=== PATIENT | male | born 1985 | race Hispanic/Latino ===

== ENCOUNTER 2023-02-28 08:24 | Emergency (ER) | payer SELFPAY ==
[2023-02-28 08:46] VITALS: BP 124/78; PULSE 50; RESP 16; TEMP 36.3; O2SAT 100
--- NOTE | 2023-02-28 08:46 | ED.GENADULT ---
HPI - General Adult General Chief complaint: Unspecified Stated complaint: Anus pain Time Seen by Provider: 02/28/23 08:48 Source: patient Mode of arrival: ambulatory Limitations: no limitations History of Present Illness HPI narrative: 37 y/o male presented for c/o rectal pain for 3 days with bowel movement. States it feels like rectum is swollen or injured, and reports throbbing and pressure with bowel movements. Endorses possible small amount of blood in stool. Has been using previously prescribed cream for itching, and 'cream for babies.' Denies abdominal pain, decreased appetite, n/v/d, or constipation. Has 2-3 BMs per day without change, stool is not hard or narrow. States he has had similar symptoms in the past, but has not been dx with hemorrhoids. 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 Related Data Allergies Allergy/AdvReac Type Severity Reaction Status Date / Time No Known Allergies Allergy Verified 02/28/23 09:09 Review of Systems Review of Systems: CONSTITUTIONAL: Denies body aches, fever, chills, or sweats. EYES: Denies visual changes, redness, or discharge. ENT: Denies rhinorrhea, congestion, sore throat, or otalgia. CARDIOVASCULAR: Denies chest pain, palpitations, or edema. RESPIRATORY: Denies cough or dyspnea. GASTROINTESTINAL: Denies abdominal pain, nausea, vomiting, or diarrhea. Reports rectal pain. GENITOURINARY: Denies dysuria or hematuria. SKIN: Denies rash, itching, or wounds. MUSCULOSKELETAL: Denies back pain, joint pain, or myalgia. NEUROLOGIC: Denies headache, numbness, tingling, or weakness. All systems reviewed & are unremarkable except as noted in HPI and below PMFSH Past Medical History Medical History (Updated 02/28/23 @ 09:25 by Juanis Quarles APRN) No pertinent past medical history Comments At time of signature, I have reviewed and agree with nursing past medical, surgical, social and family history unless otherwise noted. Please see nursing chart for further information. There is no relevant family history pertinent to the presenting complaint Exam Narrative: GENERAL: Well-appearing, well-nourished, and in no acute distress. HEAD: Normocephalic, atraumatic. EYES: EOMI. No redness or drainage. Conjunctivae normal. ENT: Mucous membranes pink and moist. No rhinorrhea. TMs normal bilaterally. Throat normal. Uvula midline. NECK: Normal AROM. Supple. No lymphadenopathy. CHEST: No respiratory distress. Clear to auscultation. HEART: Regular rate and rhythm. No murmur appreciated. Normal peripheral pulses. ABDOMEN: Soft, nontender, nondistended, normal active bowel sounds. External rectal exam is normal without hemorrhoids; tender and firm surrounding anus. No erythema or induration or fluctuance. MUSCULOSKELETAL: No bony tenderness. EXTREMITIES: Normal range of motion. No edema. SKIN: Warm, dry, no rash. Capillary refill normal. Normal skin turgor. NEURO: No focal deficits. Alert and oriented x3. Gait steady. PSYCH: Normal affect. Course Course Emergency Course: Patient is aware of diagnosis, understands and agrees to treatment plan. Anticipatory guidance given. Patient agrees to follow-up as directed and is aware of reasons to seek care at the emergency department. Portions of this record may have been created with voice recognition software Level of Care: Express Care Visit Vital Signs Vital signs: Vital Signs Temperature 97.4 F L 02/28/23 08:46 Pulse Rate 50 L 02/28/23 08:46 Respiratory Rate 16 02/28/23 08:46 Blood Pressure 124/78 02/28/23 08:46 Pulse Oximetry 100 02/28/23 08:46 Temperature 97.4 F L 02/28/23 08:46 Pulse Rate 50 L 02/28/23 08:46 Respiratory Rate 16 02/28/23 08:46 Blood Pressure 124/78 02/28/23 08:46 Pulse Oximetry 100 02/28/23 08:46 Medical Decision Making [facility] Narrative Medical decision making narrative: Discussed physical exam findings. Advised supportive measures and si
== END 2023-02-28 09:17 | disposition home or self-care (01) ==
PROVIDERS: Emergency Provider Nurse Practitioner Family
DX: K62.89 Other specified diseases of anus and rectum (principal)
CPT/HCPCS: 99213; G0463

== ENCOUNTER 2023-04-22 09:33 | Emergency (ER) | payer SELFPAY ==
[2023-04-22 10:08] VITALS: BP 117/70; PULSE 77; RESP 16; TEMP 36.5; O2SAT 100
--- NOTE | 2023-04-22 11:18 | ED.URI ---
HPI - URI/Sore Throat General Chief Complaint: Upper Respiratory Infection Stated Complaint: HEADACHE/SORE THROAT Time Seen by Provider: 04/22/23 10:52 Source: patient, RN notes reviewed and supervisor film processing Mode of arrival: ambulatory Limitations: no limitations History of Present Illness HPI Narrative: Patient presents today with a 2 day history of headache, subjective fever, vomiting, swelling to the left side of the neck. Patient currently rates his pain 8/10 and has been taking Tylenol and Advil with mild relief. Son presents with him with similar symptoms. Related Data Allergies Allergy/AdvReac Type Severity Reaction Status Date / Time No Known Allergies Allergy Verified 02/28/23 09:09 Review of Systems Review of Systems: CONSTITUTIONAL: Denies body aches, chills, or sweats.+ subjective fever EYES: Denies visual changes, redness, or discharge. ENT: Denies rhinorrhea, congestion, sore throat, or otalgia. CARDIOVASCULAR: Denies chest pain, palpitations, or edema. RESPIRATORY: Denies cough or dyspnea. GASTROINTESTINAL: Denies abdominal pain, nausea, or diarrhea.+ vomiting GENITOURINARY: Denies dysuria or hematuria. SKIN: Denies rash, itching, or wounds. MUSCULOSKELETAL: Denies back pain, joint pain, or myalgia. NEUROLOGIC: Denies headache, numbness, tingling, or weakness.+ headache PSYCH: Denies depression or anxiety. PENDING SALE TO [facility] Past Medical History Medical History No pertinent past medical history Comments At time of signature, I have reviewed and agree with nursing past medical, surgical, social and family history unless otherwise noted. Please see nursing chart for further information. There is no relevant family history pertinent to the presenting complaint Exam Narrative: GENERAL: Mildly ill-appearing, well-nourished, and in no acute distress. HEAD: Normocephalic, atraumatic. EYES: EOMI. No redness or drainage. Conjunctivae normal. ENT: Mucous membranes pink and moist. Nares clear. No rhinorrhea. TMs normal bilaterally. Throat erythematous and edematous. Tonsils 3+ with white exudate. Uvula midline. NECK: Normal AROM. Supple. Left anterior cervical chain and tonsillar lymphadenopathy and tenderness. CHEST: No respiratory distress. Clear to auscultation. HEART: Regular rate and rhythm. No murmur appreciated. Normal peripheral pulses. EXTREMITIES: Normal range of motion. No edema. SKIN: Warm, dry, no rash. Capillary refill normal. Normal skin turgor. NEURO: No focal deficits. Alert and oriented x3. Gait steady. PSYCH: Normal affect. No signs of depression or anxiety. Course Course Level of Care: Express Care Visit Vital Signs Vital signs: Vital Signs Temperature 97.7 F 04/22/23 10:08 Pulse Rate 77 04/22/23 10:08 Respiratory Rate 16 04/22/23 10:08 Blood Pressure 117/70 04/22/23 10:08 Pulse Oximetry 100 04/22/23 10:08 Temperature 97.7 F 04/22/23 10:08 Pulse Rate 77 04/22/23 10:08 Respiratory Rate 16 04/22/23 10:08 Blood Pressure 117/70 04/22/23 10:08 Pulse Oximetry 100 04/22/23 10:08 At time of signature, I have reviewed and agree with nursing past medical, surgical, social and family history unless otherwise noted. Please see nursing chart for further information. There is no relevant family history pertinent to the presenting complaint MDM - URI/Sore Throat MDM Narrative Medical decision making narrative: All test negative. Symptoms likely viral in etiology. Strep culture pending. will treat with Zofran and course of prednisone. Anticipatory guidance given. Differential Diagnosis Differential diagnosis: Likely upper respiratory infection, viral infection, influenza, pharyngitis and other (Strep throat, COVID-19) Lab Data Attestation: I reviewed the patient's lab results. Lab results narrative: COVID-19 negative Labs: Influenza A Screen Negative
== END 2023-04-22 11:28 | disposition home or self-care (01) ==
PROVIDERS: Emergency Provider Nurse Practitioner; PCP Registered Nurse
DX: B34.9 Viral infection, unspecified (principal); Z20.822 Contact with and (suspected) exposure to COVID-19
CPT/HCPCS: 87081; 87147; 87426; 87804; 87880; 99213; C9803; G0463

== ENCOUNTER 2023-06-06 08:18 | Emergency (ER) | payer SELFPAY ==
[2023-06-06 08:26] VITALS: BP 108/71; PULSE 56; RESP 16; TEMP 36.1; O2SAT 100
--- NOTE | 2023-06-06 08:33 | ED.SKABFB ---
HPI - Skin/Abscess/Foreign Bdy General Chief complaint: Skin/Abscess/Foreign Body Stated complaint: Rash Time Seen by Provider: 06/06/23 08:33 Source: patient, RN notes reviewed and old records reviewed Mode of arrival: ambulatory Limitations: language barrier and other (interpretor service) History of Present Illness HPI narrative: 37 year old male accompanied by family member presents to [facility] care with complaints of left sided back pain for one week duration and then he noted rash to his left sided back around to left upper abdomen which started 2 days ago.Patient states that he initially though it was some muscle ache so he had family member cup his back with cachil dehe noted in area of rash on his back. Patient reports that he has applied some alcohol to the rash.Patient reports that area feels swollen and pérez, no drainage or crusting of lesions noted.Patient reports that he did have chicken pox as a child. MD complaint: rash and other (back pain) Onset (ago): week(s) (1 week pain rash started 2 days ago) Location: back (left back) Severity: moderate Treatments prior to arrival: other (alcohol) Related Data Home Medications Medication Instructions Recorded Confirmed atorvastatin 10 mg tablet 10 mg PO DAILY 06/06/23 06/06/23 Allergies Allergy/AdvReac Type Severity Reaction Status Date / Time No Known Allergies Allergy Verified 06/06/23 08:27 Review of Systems Review of Systems: CONSTITUTIONAL: Denies fever, chills, or sweats. CARDIOVASCULAR: Denies chest pain, palpitations, or edema. RESPIRATORY: Denies cough or dyspnea. SKIN: Reports red blister type of rash to left back and going around to left upper abdomen MUSCULOSKELETAL: Denies joint pain or myalgia. NEUROLOGIC: Denies headache, numbness, or weakness. All systems reviewed & are unremarkable except as noted in HPI and below [facility] Past Medical History Medical History (Updated 06/07/23 @ 07:54 by Tricia Delacruz NP) Pre-diabetes Serum cholesterol elevated Social History Social History (Updated 06/07/23 @ 07:52 by Tricia Delacruz NP) Smoking status: Never smoker Alcohol intake: current Alcohol use details: social Substance use type: does not use Living arrangements: with family Gender identity (if verbalized by the patient): Male Comments At time of signature, agree with nursing past medical, surgical, social and family history. There is no relevant family history pertinent to the presenting complaint Exam Narrative: GENERAL: Well-appearing, well-nourished, and in no acute distress. HEAD: Normocephalic, atraumatic. EYES: PERRLA, conjunctivae clear, and EOMI. ENT: Mucous membranes moist. Oropharynx without edema, erythema or lesions. NECK: Supple. No lymphadenopathy CHEST: Clear to auscultation. No respiratory distress.SAO2 100% on room air HEART: Regular rate and rhythm. SKIN: Warm, dry.? Patches of red blistery rash on left side of back and around to left upper abdomen with burning discomfort, no drainage or crusting of lesions NEURO:? Alert and oriented x3. PSYCH: Normal mood and affect Course Course Emergency Course: Patient is aware of diagnosis, understands and agrees to treatment plan.? Anticipatory guidance given.? Patient agrees to follow-up as directed and is aware of reasons to seek care at the emergency department. Portions of this record may have been created with voice recognition software Level of Care: Express Care Visit Vital Signs Vital signs: Vital Signs Temperature 36.1 C L 06/06/23 08:26 Pulse Rate 56 L 06/06/23 08:26 Respiratory Rate 16 06/06/23 08:26 Blood Pressure 108/71 06/06/23 08:26 Pulse Oximetry 100 06/06/23 08:26 Temperature 36.1 C L 06/06/23 08:26 Pulse Rate 56 L 06/06/23 08:26 Respiratory Rate 16 06/06/23 08:26 Blood Pressure 108/71 06/06/23 08:26 Pulse Oximetry 100 06/06/23 08:26 Reviewed MDM - Skin/Abscess/Foreign Bd
== END 2023-06-06 08:58 | disposition home or self-care (01) ==
PROVIDERS: Emergency Provider Registered Nurse; PCP Registered Nurse
DX: B02.9 Zoster without complications (principal)
CPT/HCPCS: 99213; G0463

== ENCOUNTER 2024-08-25 08:57 | Emergency (ER) | payer SELFPAY ==
--- NOTE | ~2024-08-25 | XR_ITS ---
EXAMINATION: XR chest 2V DATE: 08/25/2024 09:33 INDICATION: Cough. TECHNIQUE: Frontal and lateral views of the chest were obtained. COMPARISON: None. FINDINGS: There are mild airspace opacities in the lower lung zones. No pleural effusion or pneumotho rax. The heart size is normal. IMPRESSION: 1. Mild airspace opacities in the lower lung zones, consistent with atelectasis versus pneumonia. Reviewed, dictated and finalized at location A. ETOLOGY INSTRUCTOR
[2024-08-25 09:26] VITALS: BP 101/67; PULSE 89; RESP 16; TEMP 36.9; O2SAT 98
--- NOTE | 2024-08-25 09:54 | ED.URI ---
HPI - URI/Sore Throat General Chief Complaint: Upper Respiratory Infection Stated Complaint: FEVER/COUGH/CONGESTION Time Seen by Provider: 08/25/24 09:25 Source: patient, RN notes reviewed, old records reviewed and network pricing consultant (Icelandic) Mode of arrival: ambulatory Limitations: no limitations History of Present Illness HPI Narrative: 39-year-old male presents to the [facility] with 1 week of cough and fevers. Also reports headache, low back pain. Has been taken [id number] products with minimal relief. Patient denies any past medical history. Use a mold capper helper for entire HPI and exam. Related Data Home Medications ?Medication ?Instructions ?Recorded ?Confirmed ?Last Taken ?Type atorvastatin 10 mg tablet 10 mg PO DAILY 06/06/23 06/06/23 Unknown History Allergies Allergy/AdvReac Type Severity Reaction Status Date / Time No Known Allergies Allergy Verified 06/06/23 08:27 Review of Systems Review of Systems: All systems reviewed & are unremarkable except as noted in HPI and below Constitutional: Constitutional: Reports as per HPI, Reports body ache(s), Reports fever(s) and Reports headache(s) ENT: Reports system reviewed and no additional complaints, except as documented Cardiovascular: Cardiovascular: Reports no additional cardiovascular complaints, Denies chest pain and Denies dyspnea Respiratory: Respiratory: Reports as per HPI, Denies chest congestion, Reports cough and Denies dyspnea Musculoskeletal: Musculoskeletal: Reports no additional musculoskeletal complaints Integumentary/Breasts: Skin/Breast: Reports system reviewed and no additional complaints, except as docu PMFSH Past Medical History Medical History Pre-diabetes Serum cholesterol elevated Social History Social History Smoking status: Never smoker Alcohol intake: current Alcohol use details: social Substance use type: does not use Living arrangements: with family Gender identity (if verbalized by the patient): Male Comments At the time of my signature, I reviewed and agree with the nursing past medical, surgical, social, and family history. There is no relevant family history pertinent to the patient complaint. Exam Const: General: cooperative, healthy appearing, comfortable, no acute distress, well developed, alert and well nourished Nutritional Appearance: well nourished Orientation/consciousness: patient oriented x3 Limitations: no limitations HENMT: Head: normal to inspection Ears: hearing grossly normal bilaterally, external ears normal, TM's normal bilaterally, EAC's normal, mastoids normal and no periauricular adenopathy Mouth: Yes Normal oral and palatal mucosa present, Yes lip normal, Yes tongue normal and Yes moist mucous membranes Eyes: General: appearance normal, both eyes and all related structures Alignment and Position: alignment normal Neck: Neck: normal visual inspection, full ROM, no lymphadenopathy and no meningeal signs Chest: Chest palpation & inspection: normal inspection of the chest Resp: Effort & Inspection: normal respiratory effort and able to speak in complete sentences Auscultation: clear to auscultation bilaterally, no crackles, no rales, no rhonchi, no wheezes and diminished lung sounds on the left in the lower lung marquez Cardio: Rate: regular rate Skin: General skin exam: normal color and no rashes or lesions noted Neuro: General: patient oriented x3, gait normal, moves all extremities and no meningeal signs Cognition (Neuro): normal cognition Speech: normal speech Gait exam (Neuro): Normal gait present Extrem: General: normal to inspection, full ROM, capillary refill normal and normal gait Psych: Appearance: grossly normal and well kempt Mental Status: mental status grossly normal Speech and movement: Normal speech and movement present and Clear speech present Affect: normal affect Attitude: cooperative Course Course Level of Care: Express Care Visit Vital Signs Vital signs: Vital Signs Temperature 98.5 F 08/25/24 09:26 Pulse Rate 89 08/25/24 09:26 Respiratory Rate 16 08/25/24 09:26 Blood Pressure 101/67 08/25/24 09:26 Pulse Oximetry 98 08/25/24 09:26 Temperature 98.5 F 08/25/24 09:26 Pulse Rate 89 08/25/24 09:26 Respiratory Rate 16 08/25/24 09:26 Blood Pressure 101/67 08/25/24 09:26 Pulse Oximetry 98 08/25/24 09:26 Reviewed MDM - URI/Sore Throat MDM Narrative Medical decision making narrative: Patient sitting comfortably in exam room. Nontoxic, vitals stable. Patient in no acute distress. Patient presents with cough and fevers x1 week. Chest x-ray shows mild opaque is sees in the lower lung zones consistent with atelectasis versus pneumonia, will treat for pneumonia, encourage patient to take deep breaths. Patient appropriate for outpatient treatment with close follow-up, strict signs and symptoms to go the emergency room which were printed in [place]ic Discharge instructions reviewed with patient, as well as provided in writing per nursing staff. The instructions also include specific and strict return/GO TO THE ER as well as f/u information. All questions have been answered, and the patient deny any further questions with discharge and discharge plan. Some parts of this dictation were generated by voice recognition software and may contain typographical and/or grammatical inaccuracies. Differential Diagnosis Differential diagnosis: Likely upper respiratory infection, viral infection, bronchitis and other (Pneumonia) Imaging Data Radiologist's impression: EXAMINATION: XR chest 2V DATE: 08/25/2024 09:33 INDICATION: Cough. TECHNIQUE: Frontal and lateral views of the chest were obtained. COMPARISON: None. FINDINGS: There are mild airspace opacities in the lower lung zones. No pleural effusion or pneumothorax. The heart size is normal. IMPRESSION: 1. Mild airspace opacities in the lower lung zones, consistent with atelectasis versus pneumonia. Critical Care Time Critical Care Time Critical Care Time: No Discharge Plan Discharge Clinical Impression: Pneumonia Qualifiers: Pneumonia type: due to unspecified organism Patient Disposition: Home, Self-Care Condition: Stable Instructions: Antibiotic Form, Pneumonia (ED) Additional Instructions: Tu radiograf?a mostr? neumon?a. Es importante que respires profundamente 10 veces cada hora mientras est?s despierto. Hatch los antibi?ticos seg?n lo prescrito hasta que se acaben. Seguimiento con snyder proveedor de atenci?n primaria Es muy importante tratar liss s?ntomas. Janeth pratik agua, Gatorade, Pedialyte, paletas heladas o gelatina. -Alterne Tylenol y Motrin seg?n las instrucciones del paquete para la fiebre o el dolor. Puedes alternar cada 4 horas. -Los medicamentos antihistam?nicos ricky Zyrtec/Claritin/Danielle veronica el d?a pueden ayudar a mejorar los s?ntomas. -Hacer irrigaciones nasales diarias puede ayudar a aliviar la presi?n de los senos nasales. Cosas ricky ines olla Neti -Use Flonase dos veces al d?a veronica 5 d?as y luego diariamente para ayudar a reducir la inflamaci?n y secar los senos nasales. -Tambi?n puedes utilizar Mucinex. Aseg?rese de beber pratik agua con eric medicamento, al menos 8 onzas con cada dosis y es importante beber de 8 a 10 vasos de agua por d?a. El agua es un descongestionante natural. -Coma y janeth cosas que abril f?ciles de tragar, ricky t?, sopa o paletas heladas. -Enjuagues bucales ricky: Gargarismos con agua salada y/o puede utilizar anest?sico t?selena (p. ej. spray cloras?ptico) o pastillas para aliviar la sequedad o el dolor de garganta). -Lavarse las nydia con frecuencia o usar desinfectante para nydia es ines de las mejores formas de prevenir la propagaci?n de infecciones. -Usar un vaporizador o humidificador por la noche tambi?n ayudar? a diluir las secreciones y a toser con flema. -Seguimiento con el proveedor de atenci?n primaria en 7 a 10 d?as si la condici?n no mejora - Si los s?ntomas son nuevos o empeoran, vaya directamente a la gama de emergencias m?s cercana. Your x-ray showed pneumonia. It is important that you take 10 deep breaths every hour while awake. Take the antibiotics as prescribed until they are gone Follow-up with your primary care provider It is very important to treat your symptoms. Drink plenty of water, Gatorade, Pedialyte, ice pops or Jell-O. -Alternate Tylenol and Motrin per package directions for fever or pain. You can alternate every 4 hours -Antihistamine medication such as Zyrtec/Claritin/Danielle during the day can help improve symptoms. -doing daily nasal irrigations can help relieve pressure your sinuses. Things like a Neti pot -Use Flonase twice a day for 5 days then daily to help reduce the inflammation and dry up your sinuses. -You can also use Mucinex. Be sure to drink plenty of water with this medication at least 8 ounces with every dose and it is important to drink 8 to 10 glasses of water per day. Water is a natural decongestant -Eat and drink things that are easy to swallow, like tea or soup, or popsicles. -Oral rinses such as: Salt water gargles and/or may use topical anesthetic (eg. Chloraseptic spray) or lozenges to relieve dryness or throat pain). -Frequent hand washing or hand software engineering analyst is one of the best ways to prevent spread of infection. -Using a vaporizer or humidifier at night will also help thin secretions and help with coughing up phlegm. -Follow up with primary care provider in 7-10 days if condition is not improving - For new or worsening symptoms go directly to the nearest ER Patient Language: Icelandic Prescriptions: New doxycycline monohydrate 100 mg tablet 100 mg PO BID Qty: 20 0RF No Action atorvastatin 10 mg tablet 10 mg PO DAILY valacyclovir 1 gram tablet 1,000 mg PO TID Qty: 21 0RF lidocaine 4 % cream 1 applic topical TID Qty: 25 0RF Rx Instructions: apply to rash 3 times daily Follow-up/Referrals: Nate,JOSE Walker [Primary Care Provider] - 2 Weeks ([facility] follow-up ) Stand Alone Forms: Work/School Release IP Time of Disposition: 10:02
== END 2024-08-25 10:07 | disposition home or self-care (01) ==
PROVIDERS: Emergency Provider Nurse Practitioner; PCP Registered Nurse
DX: J18.9 Pneumonia, unspecified organism (principal)
CPT/HCPCS: 71046; 99213; G0463